=== PATIENT | male | born 1930 | race Two or more races ===

== ENCOUNTER 2019-03-03 17:00 | Emergency (ER) | payer OTHER, MEDICAID ==
[~2019-03-03] VITALS: Ht 152.4 cm; Wt 56.7 kg
[~2019-03-03 17:00] MED LIST: AMIO200T33 PO; ASP81EC PO; CLOP75TA41 PO; DIGO0.1262 PO; DOCU100T15 PO; DONE5TAB31 PO; FEXO-8 OR; FUR20T PO; HYDR-4296 PO; HYDR12.56 PO; IBUP800T24 PO; LISIPOW; LORA-352 PO; LORA-622 PO; LOSA-46 PO; LOSA100T22 PO; METO-169 PO; OME20T PO; RANO500T PO; SIMV-13 PO; TAMS0.4C36 PO; [UNRECOGNIZED DRUG - OTHER] PO
[2019-03-03 18:39] VITALS: BP 175/102
[2019-03-03] MEDS ORDERED: TETANUS-DIPTH-ACEL PERTUSSIS 0.5ML SYRG IM ONE (19:00)
[2019-03-03] MEDS ORDERED: ACETAMINOPHEN/CODEINE#3 (300/30mg) TAB PO ONE (19:00)
== END 2019-03-03 19:44 | disposition home or self-care (01) ==
LOC: ER 17:05
DX: S61.213A Laceration without foreign body of left middle finger without damage to nail, initial encounter (principal); E11.22 Type 2 diabetes mellitus with diabetic chronic kidney disease; I12.9 Hypertensive chronic kidney disease with stage 1 through stage 4 chronic kidney disease, or unspecified chronic kidney disease; N18.9 Chronic kidney disease, unspecified; E78.5 Hyperlipidemia, unspecified; Z23 Encounter for immunization; Z90.49 Acquired absence of other specified parts of digestive tract; Z79.899 Other long term (current) drug therapy; W20.8XXA Other cause of strike by thrown, projected or falling object, initial encounter; Y93.89 Activity, other specified; Y92.810 Car as the place of occurrence of the external cause; Y99.8 Other external cause status
CPT/HCPCS: 12001; 73130; 90471; 90715

== ENCOUNTER 2020-06-06 16:42 | Emergency (ER) | payer MEDICARE, MEDICAID ==
[~2020-06-06] VITALS: Ht 157.5 cm; Wt 56.7 kg
[~2020-06-06 16:42] MED LIST changes: -ASP81EC PO; +ASPI-394 PO; -LOSA-46 PO; +LOSA-69 PO
[2020-06-06 16:55] VITALS: BP 170/98
[2020-06-06] MEDS ORDERED: TETANUS-DIPTH-ACEL PERTUSSIS 0.5ML SYR Tdap IM ONE (20:45)
[2020-06-06] MEDS ORDERED: LIDOCAINE 1% HCL (LOCAL ANESTH.) INJ 20ML MDV IJ ONE (20:45)
[2020-06-06] MEDS ORDERED: cefTRIAXone SOD 1,000 MG VL IM ONE (21:00)
== END 2020-06-06 21:36 | disposition home or self-care (01) ==
LOC: ER 16:42
DX: S61.215A Laceration without foreign body of left ring finger without damage to nail, initial encounter (principal); I12.9 Hypertensive chronic kidney disease with stage 1 through stage 4 chronic kidney disease, or unspecified chronic kidney disease; E11.22 Type 2 diabetes mellitus with diabetic chronic kidney disease; N18.9 Chronic kidney disease, unspecified; E78.5 Hyperlipidemia, unspecified; Z90.49 Acquired absence of other specified parts of digestive tract; Z79.899 Other long term (current) drug therapy; Z79.82 Long term (current) use of aspirin; W01.0XXA Fall on same level from slipping, tripping and stumbling without subsequent striking against object, initial encounter; Y93.89 Activity, other specified; Y92.89 Other specified places as the place of occurrence of the external cause; Y99.8 Other external cause status
CPT/HCPCS: 12002; 73130; 90471; 90715; 96372; 99284; J0696; J2001